=== PATIENT | female | born 1950 | race American Indian/Alaskan Native ===

== ENCOUNTER 2018-10-25 21:06 | Emergency (ER) | payer MEDICARE, OTHER ==
[~2018-10-25] VITALS: Ht 160 cm; Wt 79.4 kg
[2018-10-25] MEDS ORDERED: LEVLIO1 PO (22:14)
[2018-10-25] MEDS ORDERED: LISI20 (22:18)
[2018-10-25] MEDS ORDERED: AMLO5 PO (22:19)
[2018-10-25] MEDS ORDERED: LORA1 PO (22:19)
[2018-10-25] MEDS ORDERED: IBUP600 PO (22:19)
[2018-10-25] MEDS ORDERED: CHOLESTEROL (22:20)
[2018-10-25] MEDS ORDERED: Percocet 5-3251 EACH PO (22:58)
[2018-10-25] MEDS ORDERED: CEPH500 PO (22:58)
[2018-10-25] MEDS ORDERED: ONDA4ODT MM (23:39)
== END 2018-10-25 23:26 | disposition home or self-care (01) ==
LOC: ER 21:06
DX: T20.17XA Burn of first degree of neck, initial encounter (principal); T20.13XA Burn of first degree of chin, initial encounter; T21.11XA Burn of first degree of chest wall, initial encounter; T31.0 Burns involving less than 10% of body surface; F17.200 Nicotine dependence, unspecified, uncomplicated; X15.8XXA Contact with other hot household appliances, initial encounter
CPT/HCPCS: 16000; 90471; 90714; 99283-25; A9270; A9270-GY

== ENCOUNTER → 2020-02-03 | Outpatient (CLI) | payer MEDICARE, OTHER ==
[~2020-02-03] MED LIST: AMLO5 PO; CEPH500 PO; CHOLESTEROL; IBUP600 PO; LEVLIO1 PO; LISI20; LORA1 PO; ONDA4ODT MM; Percocet 5-3251 EACH PO
[2020-02-03 17:04] LABS: BASOPHILS ABSOLUTE AUTO 0.03 K/mm3 (0.00-0.23); BASOPHILS PERCENT AUTO 1 % (0-2); EOSINOPHILS ABSOLUTE AUTO 0.28 K/mm3 (0.00-0.68); EOSINOPHILS PERCENT AUTO 4 % (0-6); Hematocrit 39.6 % (33.0-51.0); Hemoglobin 12.9 g/dL (11.5-16.0); IMMATURE GRAN ABSOLUTE AUTO 0.02 K/mm3 (0.00-0.10); IMMATURE GRAN PERCENT AUTO 0 % (0-1); LYMPHOCYTES ABSOLUTE AUTO 1.59 K/mm3 (0.84-5.20); LYMPHOCYTES PERCENT AUTO 24 % (21-46); MONOCYTES ABSOLUTE AUTO 0.56 K/mm3 (0.16-1.47); MONOCYTES PERCENT AUTO 8 % (4-13); Mean Corpuscular HGB Conc 32.6 g/dL (31.5-36.5); Mean Corpuscular Volume 86 fL (80-100); Mean Platelet Volume 11.7 fL (9.1-12.4); NEUTROPHILS ABSOLUTE AUTO 4.15 K/mm3 (1.96-9.15); NEUTROPHILS PERCENT AUTO 63 % (41-73); Platelet Count 243 K/mm3 (150-400); RDW Coefficient Variation 13.9 % (11.7-14.2); RDW Standard Deviation 43.4 fL (35.1-46.3); Red Blood Cell Count 4.61 M/mm3 (3.80-5.20); White Blood Cell Count 6.63 K/mm3 (4.00-11.30)
[2020-02-03 17:26] LABS: Alanine Aminotransfer (ALT/SGP 27 U/L (12-78); Albumin, Blood 3.5 g/dL (3.4-5.0); Albumin/Globulin Ratio 0.9 (0.8-1.8); Alk Phos 77 U/L (40-126); Anion Gap 8 mmol/L (6-16); Aspartate Aminotrans (AST/SGOT 18 U/L (12-37); Bilirubin, Total 0.4 mg/dL (0.1-1.0); Blood Urea Nitrogen 20 mg/dL (8-24); Bun/Creatinine Ratio 21.7 (12.0-20.0); CO2, Blood 25 mmol/L (21-32); Calcium, Blood 8.6 mg/dL (8.5-10.1); Chloride, Blood 107 mmol/L (98-108); Creatinine, Blood 0.92 mg/dL (0.40-1.00); Globulin, Blood 3.9 g/dL (2.2-4.0); Glomerular Filtration Rate >60 (60-); Glucose, Blood 108 mg/dL (70-99); Potassium, Blood 4.1 mmol/L (3.5-5.5); Sodium, Blood 140 mmol/L (136-145); Thyroid Stimulating Hormone 5.634 uIU/mL (0.360-4.800); Total Protein, Blood 7.4 g/dL (6.4-8.2)
[2020-02-05 13:34] LABS: CORONAVIRUS (COVID19) CSH-NRL Negative (Negative)
== END | disposition home or self-care (01) ==
LOC: LAB SHORT 17:00 → LAB EV 17:00
PROVIDERS: Physician Assistant
DX: R06.02 Shortness of breath (principal); R53.83 Other fatigue; Z20.828 Contact with and (suspected) exposure to other viral communicable diseases
CPT/HCPCS: 80053; 83880; 84443; 85025; U0003

== ENCOUNTER → 2020-04-18 | Outpatient (CLI) | payer MEDICARE ==
[~2020-04-18] MED LIST changes: +ACET500 PO; +ASPI81CH PO; +ATOR20 PO; +BACL10 PO; +CITA20 PO; +IBUP800 PO; +LISI20 PO; +LORA.5 PO; +OMEP20ER PO; +TOPROL XL25 MG PO; +VITAMIN D310 MC4 PO; +VITAMIN D31000 UNI1 PO
[2020-04-18 12:41] LABS: BASOPHILS ABSOLUTE AUTO 0.03 K/mm3 (0.00-0.23); BASOPHILS PERCENT AUTO 1 % (0-2); EOSINOPHILS ABSOLUTE AUTO 0.23 K/mm3 (0.00-0.68); EOSINOPHILS PERCENT AUTO 4 % (0-6); Hematocrit 45.7 % (33.0-51.0); Hemoglobin 14.3 g/dL (11.5-16.0); IMMATURE GRAN ABSOLUTE AUTO 0.01 K/mm3 (0.00-0.10); IMMATURE GRAN PERCENT AUTO 0 % (0-1); LYMPHOCYTES ABSOLUTE AUTO 2.22 K/mm3 (0.84-5.20); LYMPHOCYTES PERCENT AUTO 37 % (21-46); MONOCYTES ABSOLUTE AUTO 0.53 K/mm3 (0.16-1.47); MONOCYTES PERCENT AUTO 9 % (4-13); Mean Corpuscular HGB 26.9 pg (26.0-34.0); Mean Corpuscular HGB Conc 31.3 g/dL (31.5-36.5); Mean Corpuscular Volume 86 fL (80-100); Mean Platelet Volume 10.8 fL (9.1-12.4); NEUTROPHILS ABSOLUTE AUTO 2.94 K/mm3 (1.96-9.15); NEUTROPHILS PERCENT AUTO 49 % (41-73); Platelet Count 305 K/mm3 (150-400); RDW Coefficient Variation 14.9 % (11.7-14.2); Red Blood Cell Count 5.31 M/mm3 (3.80-5.20); White Blood Cell Count 5.96 K/mm3 (4.00-11.30)
[2020-04-22 06:09] LABS: COTININE Negative ng/mL (Cutoff=300)
== END | disposition home or self-care (01) ==
LOC: LAB 12:17 → LAB SHORT 12:17 → LAB EV 12:17
PROVIDERS: Orthopaedic Surgery
DX: Z01.818 Encounter for other preprocedural examination (principal); M87.051 Idiopathic aseptic necrosis of right femur; Z87.891 Personal history of nicotine dependence
CPT/HCPCS: 36415; 85025; 85651; 86140

== ENCOUNTER 2020-06-22 09:21 | Day surgery (SDC) | payer MEDICARE ==
[~2020-06-22] VITALS: Ht 160 cm; Wt 85.1 kg
[~2020-06-22 09:21] MED LIST changes: -ACET500 PO; -ASPI81CH PO; -IBUP800 PO; -LORA.5 PO; -VITAMIN D31000 UNI1 PO
--- NOTE | 2020-06-22 09:40 | NUR ---
History, Chart, Medications and Allergies reviewed before start of procedure. Patient confirms NPO status and agrees with scheduled surgery.
[2020-06-22] MEDS ORDERED: LORA.5 PO (09:44)
[2020-06-22] MEDS ORDERED: VITAMIN D31000 UNI1 PO (09:46)
[2020-06-22] MEDS ORDERED: IBUP800 PO (09:46)
[2020-06-22] MEDS ORDERED: ACET500 PO (09:51)
--- NOTE | 2020-06-22 10:08 | NUR ---
KNEE HIGH ANNA HOSE AND CALF PAS APPLIED TO BLE.
--- NOTE | 2020-06-22 10:11 | NUR ---
Lungs clear T/O to Auscultation.
[2020-06-22 10:35] LABS: BASOPHILS ABSOLUTE AUTO 0.04 K/mm3 (0.00-0.23); BASOPHILS PERCENT AUTO 1 % (0-2); EOSINOPHILS ABSOLUTE AUTO 0.24 K/mm3 (0.00-0.68); EOSINOPHILS PERCENT AUTO 3 % (0-6); Hematocrit 45.6 % (33.0-51.0); Hemoglobin 14.2 g/dL (11.5-16.0); IMMATURE GRAN ABSOLUTE AUTO 0.03 K/mm3 (0.00-0.10); IMMATURE GRAN PERCENT AUTO 0 % (0-1); LYMPHOCYTES ABSOLUTE AUTO 2.07 K/mm3 (0.84-5.20); LYMPHOCYTES PERCENT AUTO 27 % (21-46); MONOCYTES ABSOLUTE AUTO 0.63 K/mm3 (0.16-1.47); MONOCYTES PERCENT AUTO 8 % (4-13); Mean Corpuscular HGB 27.3 pg (26.0-34.0); Mean Corpuscular HGB Conc 31.1 g/dL (31.5-36.5); Mean Corpuscular Volume 88 fL (80-100); Mean Platelet Volume 11.4 fL (9.1-12.4); NEUTROPHILS ABSOLUTE AUTO 4.55 K/mm3 (1.96-9.15); NEUTROPHILS PERCENT AUTO 60 % (41-73); Platelet Count 229 K/mm3 (150-400); RDW Coefficient Variation 15.2 % (11.7-14.2); RDW Standard Deviation 49.1 fL (35.1-46.3); White Blood Cell Count 7.56 K/mm3 (4.00-11.30)
--- NOTE | 2020-06-22 10:43 | NUR ---
NICHOLAS X3 AMPULES TO MARLEE LION PER DR AVALOS' ORDER.
[2020-06-22 10:51] LABS: Anion Gap 5 mmol/L (6-16); Blood Urea Nitrogen 15 mg/dL (8-24); Bun/Creatinine Ratio 15.9 (12.0-20.0); CO2, Blood 25 mmol/L (21-32); Calcium, Blood 8.7 mg/dL (8.5-10.1); Chloride, Blood 111 mmol/L (98-108); Creatinine, Blood 0.94 mg/dL (0.40-1.00); Glomerular Filtration Rate >60 (60-); Glucose, Blood 86 mg/dL (70-99); Potassium, Blood 4.3 mmol/L (3.5-5.5); Sodium, Blood 141 mmol/L (136-145)
--- NOTE | 2020-06-22 11:00 | NUR ---
UP TO BR TO VOID. USED WALKER AND STAND BY ASSIST.
--- NOTE | 2020-06-22 18:23 | NUR ---
SHIFT SUMMARY PT ARRIVED TO UNIT @ 15:15 C/O LOWER BACK PAIN & SEVERE N/V. WSA REPOSITIONED TO L SIDE WHICH CAUSED SOME NON-SYMPTOMATIC HYPOTENSION BUT RELIEVED BACK PAIN. PT ASKED TO SLEEP & RESTED WELL FOR 2 HOURS. N/V WAS RESOLVED WHEN WOKE UP AND PAIN MUCH BETTER. TOLERATED DINNER & PO PAIN MEDS GIVEN. PT WISHES TO MAKE SURE DINNER "STAYS DOWN FOR AWHILE" BEFORE OOB TO CHAIR.
--- NOTE | 2020-06-23 04:08 | NUR ---
SHIFT SUMMARY: PT POD#1 FOR RT ZACH. AQUACEL DRESSING C/D/I WITH POLAR PACK IN PLACE. PAIN BEING MANAGED WITH SCHEDULED TORADOL AND TYLENOL. PT DECLINING ALL NARCOTICS THEY MAKE HER FEEL NAUSEOUS. PT HAD 2 EPISODES OF EMESIS LAST NIGHT AFTER GETTING OUT OF BED. MEDICATED WITH ZOFRAN PER EMAR WHICH WAS EFFECTIVE. PT ABLE TO AMBULATE TO BATHROOM SEVERAL TIMES AND IN HALLWAY. REQUIRING 1 ASSIST FOR ALL AMBULATION. PLAN FOR PHYSICAL THERAPY TODAY AND POSSIBLE DISCHARGE.
[2020-06-23 05:07] LABS: BASOPHILS ABSOLUTE AUTO 0.01 K/mm3 (0.00-0.23); BASOPHILS PERCENT AUTO 0 % (0-2); EOSINOPHILS PERCENT AUTO 0 % (0-6); Hematocrit 37.8 % (33.0-51.0); Hemoglobin 11.8 g/dL (11.5-16.0); IMMATURE GRAN ABSOLUTE AUTO 0.05 K/mm3 (0.00-0.10); IMMATURE GRAN PERCENT AUTO 0 % (0-1); LYMPHOCYTES ABSOLUTE AUTO 0.85 K/mm3 (0.84-5.20); LYMPHOCYTES PERCENT AUTO 6 % (21-46); MONOCYTES ABSOLUTE AUTO 1.01 K/mm3 (0.16-1.47); MONOCYTES PERCENT AUTO 8 % (4-13); Mean Corpuscular HGB 27.8 pg (26.0-34.0); Mean Corpuscular HGB Conc 31.2 g/dL (31.5-36.5); Mean Corpuscular Volume 89 fL (80-100); Mean Platelet Volume 12.6 fL (9.1-12.4); NEUTROPHILS ABSOLUTE AUTO 11.42 K/mm3 (1.96-9.15); NEUTROPHILS PERCENT AUTO 86 % (41-73); Platelet Count 216 K/mm3 (150-400); RDW Coefficient Variation 15.4 % (11.7-14.2); RDW Standard Deviation 50.7 fL (35.1-46.3); Red Blood Cell Count 4.24 M/mm3 (3.80-5.20); White Blood Cell Count 13.34 K/mm3 (4.00-11.30)
[2020-06-23 05:28] LABS: Bun/Creatinine Ratio 21.4 (12.0-20.0); Calcium, Blood 8.3 mg/dL (8.5-10.1); Creatinine, Blood 1.12 mg/dL (0.40-1.00); Potassium, Blood 4.4 mmol/L (3.5-5.5)
[2020-06-23] MEDS ORDERED: Percocet 5-3251 EACH PO (13:01)
[2020-06-23] MEDS ORDERED: ASPI81CH PO (13:02)
--- NOTE | 2020-06-23 16:10 | NUR ---
DISCHARGE ESCORTED OUT VIA W/C AFTER CLEARING THEAPY & DISCUSSING DISCHARGE INFO. EATING, DRINKING, VOIDING WELL. SCRIPTS, POLAR PACK, & DRSGS SENT.
== END 2020-06-23 16:20 | disposition home or self-care (01) ==
LOC: ORSCMMR 09:21 → ORD 09:45 → ORSCMMR 11:00 → ORD 11:00 → SURS 14:53 → ORSCMMR 06-23 16:20
PROVIDERS: Orthopaedic Surgery
PROC: 0SR90JZ Replacement of Right Hip Joint with Synthetic Substitute, Open Approach (ICD-10-PCS; principal; 2020-06-22 10:00)
DX: M16.11 Unilateral primary osteoarthritis, right hip (principal); I48.91 Unspecified atrial fibrillation; J44.9 Chronic obstructive pulmonary disease, unspecified; E03.9 Hypothyroidism, unspecified; E78.5 Hyperlipidemia, unspecified; Z79.899 Other long term (current) drug therapy; F17.210 Nicotine dependence, cigarettes, uncomplicated; F41.8 Other specified anxiety disorders
CPT/HCPCS: 72170; 80048; 85025; 88304; 88311; 97110; 97116; 97162; 97530; A9270; C1713; C1776; J0171; J0690; J0735; J1100; J1885; J2270; J2310; J2370; J2405; J2704; J2765; J2795; J3010; J7120